=== PATIENT | male | born 1965 | race African-American/Black ===

== ENCOUNTER 2018-08-03 08:15 | Day surgery (SDC) | payer BC ==
[~2018-08-03] VITALS: Ht 172.7 cm; Wt 89.4 kg
[2018-08-03 09:20] VITALS: Ht 172.7 cm; Wt 89.4 kg
[2018-08-03] MEDS ORDERED: PROPOFOL 40 ML ONE (09:23)
[2018-08-03] MEDS ORDERED: LIDOCAINE 100 MG SYRINGE ONE (09:23)
--- NOTE | 2018-08-03 09:27 | PREAC ---
Date/Time of Note Date/Time of Note DATE: 08/03/18 TIME: 09:26 Anesthesia Eval and Record Evaluation Time Pre-Procedure Interview DATE: 08/03/18 TIME: 09:26 Age 53 Sex male NPO: 8 hrs Preoperative diagnosis screening Planned procedure colonoscopy Past Medical History Past Medical History: Includes GI: Obesity Surgery & Anesthesia Issues No known issue Meds Anticoagulation: No Beta Fernando within 24 hr: No Reason Beta Fernando not given: Pt. not on B-Fernando Reported Medications [no home meds] No Conflict Check 08/03/18 Meds reviewed: Yes Allergies Allergies Reviewed: Yes Labs/Studies Labs Reviewed: Other (NA) test: N/A Pre-procedure Exam Airway: Adequate mouth opening Mallampati: Mallampati II Teeth: Normal Lung: Normal Heart: Normal ASA Physical Status ASA physical status: 2 Emergency: None Planned Anesthetic General/MAC: MAC Pre-operative Attestations Prior to commencing anesthesia and surgery, the patient was re-evaluated, there was verification of: *The patient's identity *The results of appropriate recent lab work and preoperative vital signs *The above evaluation not changing prior to induction *Anesthetic plan, risk benefits, alternative and complications discussed with pa tient/family; questions answered; patient/family understands, accepts and wishes to proceed. DANYA MANRIQUE Aug 03, 2018 09:27
[2018-08-03] MEDS ORDERED: no home meds (09:28)
[2018-08-03 09:43] VITALS: BP 133/87; PULSE 91; RESP 12
[2018-08-03] MEDS ORDERED: LABETALOL HCL 20MG INJ IV PRN (10:00)
[2018-08-03] MEDS ORDERED: hydrALAzine 20 MG INJ IV PRN (10:00)
--- NOTE | 2018-08-03 10:02 | PAC ---
Date/Time of Note Date/Time of Note DATE: 08/03/18 TIME: 10:01 Post-Anesthesia Notes Post-Anesthesia Note Activity: WNL Respiratory function: WNL Cardiovascular function: WNL Mental status: Baseline Pain reasonably controlled: Yes Hydration appropriate: Yes Nausea/Vomiting absent: Yes Comments BP 117/61 HR 90 temp 98.6 RR16 SpO2 100% DANYA MANRIQUE Aug 03, 2018 10:02
[2018-08-03 10:43] VITALS: BP 125/86; RESP 20
== END 2018-08-03 11:35 | disposition home or self-care (01) ==
LOC: GIL 08:15
PROVIDERS: ATTEND Internal Medicine Gastroenterology
DX: Z12.11 Encounter for screening for malignant neoplasm of colon (principal); K64.8 Other hemorrhoids
CPT/HCPCS: 45378; J2001; Z7610